=== PATIENT | female | born 2000 | race Caucasian/White ===

== ENCOUNTER 2023-08-30 01:00 | Emergency (ER) | payer OTHER ==
--- OUTSIDE RECORDS SUMMARY | 2023-08-30 01:04 | XMS REPORT | Continuity of Care Document ---
Author Name Unknown Address [address] [facility] [facility] Address [address] [facility] [place] [address] Care Team Providers Care Director Skills Name Role Phone Shawn Lizarraga M.D.mberly Primary Care Physician [phone] JEAN PIERRE WEISS Attending Clinician Unavailable ARLIN CORNELIUS Attending Clinician Unavailable Arlin Cornelius MD Attending Clinician [phone] Doctor Unassigned, [place] Attending Clinician U BASIA Bertrand Attending Clinician Unavailable Basia Moreno PA-C Attending Clinician [phone] JOSE JUAN TORRES Attending Clinician Unavail able Nurse, Adc Pob Immunization Attending Clinician Unavailable Jose Juan Torres DO Attending Clinician [phone] KAREN GARCÍA Attending Clinician Unavailable Payers Payer Name Policy Type Policy Number Effective Date Expirati on Date Source BC 2 [id number] 2022 00:00:00 [employer] [place] [id number] 2016 00:00:00 Problems Condition Name Condition Details Condition Category Status Onset Date Resolution Date Last Treatment Date Treating Clinician Comments Source Current mild episode of major depressive disorder without prior episode Current mild episode of major depressive disorder without prior episode Disease Active 2-08 00:00: 00 Trinidad carmichael Nexplanon in place Nexplanon in place Disease Active 11-02 00:00: 00 [facility] Depression Depression Disease Active 06-15 00:00: 00 [facility] Acne vulgaris Acne vulgaris Disease Active 06-15 00:00: 00 [facility] Allergies, Adverse Reactions, Alerts Allergy Name Allergy Type Status Severity Reaction(s) Onset Date Inactive Date Treating Clinician Comments Source NO KNOWN ALLERGIE S Drug Class Active [facility] Social History Social Habit Start Date Stop Date Quantity Comments Source History of tobacco use Trinidad Timbo - External History SDOH Alcohol Frequency Trinidad mcelroy - External History SDOH Alcohol Std Drinks Trinidad Salazarlefty - External History SDOH Alcohol Binge Trinidad Izquierdo - External Alcohol Comment 2022-04-14 00:00:00 2022-04-14 00:00:00 occasionally Trinidad Izquierdo - External Education 2022-04-14 00:00:00 2022-04-14 00:00:00 15 Trinidad Salazarlefty - External Tobacco use and exposure 2022-04-14 00:00:00 2022-04-14 00:00:00 Smokeless tobacco non-user Trinidad Salazarlefty - External Alcohol intake 2022-04-14 00:00:00 2022-04-14 00:00:00 Current drinker of alcohol (finding) Trinidad Izquierdo - External Exposure to SARS-CoV-2 (event) 2021-10-23 00:00:00 2021-11-02 15:21:00 Not sure [facility] Sex Assigned At 2000 00:00:00 2000 00:00:00 Trinidad edwardlefty - External Smoking Status Start Date Stop Date Source Smokes tobacco daily 2022-04-14 00:00:00 Trinidad Izquierdo - External Never smoked tobacco [facility] Medications Ordered Medication Name Filled Medication Name Start Date Stop Date Current Medication? Ordering Clinician Indication Dosage Frequency Signature (SIG) Comments Components Source escitalopra m 20 mg tablet 6-20 00:00: 00 Yes mg Armando Dane Remy escitalopra m 20 mg tablet 2-24 00:00: 00 Yes mg Armando Alberto TAKE 1 TABLET DAILY. 2-15 00:00: 00 Yes 20 Armando Alberto TAKE ONE (1) TABLET (20 MG TOTAL) BY MOUTH DAILY. 8-14 00:00: 00 05-16 00:00 :00 No Armando Alberto Escitalopra m Oxalate 20 MG oral Tablet 04-14 00:00: 00 Yes [id number] 20mg Take 1 tablet (20 mg total) by mouth daily Trinidad carmichael Amoxicillin -Pot Clavulanate 875-125 MG oral Tablet 04-14 00:00: 00 Yes [id number] 1{tbl} Take 1 tablet by mouth 2 times daily Trinidad carmichael Escitalopra m Oxalate 20 MG oral Tablet 2021-03 00:00: 00 04-14 00:00 :00 No 20mg Take 20 mg by mouth daily Trinidad carmichael etonogestre L (NEXPLANON) implant 68 mg 11-02 22:00: 00 11-02 22:22 :00 No [id number] 68mg [facility] escitalopra m oxalate 20 mg tablet 05 00:00: 00 Yes [id number] TAKE 1 TABLET BY MOUTH ONCE DAILY [facility] Vital Signs Vital Name Observation Time Observation Value Comments S ource Systolic blood pressure 2022-04-14 16:51:00 132 mm[Hg] Trinidad vail - External Diastolic blood pressure 2022-04-14 16:51:00 68 mm[Hg] Trinidad vail - External Heart rate 2022-04-14 16:51:00 105 /min Kari Izquierdo - External Body temperature 2022-04-14 16:51:00 36.44 Gayla Trinidad Izquierdo - External Respiratory rate 2022-04-14 16:51:00 22 /min Trinidad Izquierdo - External Body height 2022-04-14 16:51:00 167.6 cm Nancy Izquierdo - External Body weight 2022-04-14 16:51:00 108.5 kg Nancy Izquierdo - External BMI 2022-04-14 16:51:00 38.61 kg/m2 Nancy Izquierdo - External Oxygen saturation in Arterial blood by Pulse oximetry 2022-04-14 16:51:00 98 /min Trinidad vail - External Systolic blood pressure 2021-11-02 21:03:00 130 mm[Hg] [place] [facility] Diastolic blood pressure 2021-11-02 21:03:00 77 mm[Hg] [place] [facility] Heart rate 2021-11-02 20:47:00 88 /min [facility] Body temperature 2021-11-02 20:47:00 36.78 Gayla [facility] Respiratory rate 2021-11-02 20:47:00 18 /min [facility] Body height 2021-11-02 20:47:00 170.2 cm [facility] Body weight 2021-11-02 20:47:00 106.505 kg [facility] BMI 2021-11-02 20:47:00 36.77 kg/m2 [facility] Body Temperature 2023-08-25 08:51:00 98.30 degrees Armando F Remy Heart Rate 2023-08-25 08:51:00 96.00 /min Nae en F Remy Respiratory Rate 2023-08-25 08:51:00 Armando F Remy BP Systolic 2023-08-25 08:51:00 133 mm[Hg] Step hen F Remy BP Diastolic 2023-08-25 08:51:00 68 mm[Hg] Liam phen F Remy Weight Measured 2023-08-25 08:51:00 240.00 pounds Armando F Remy Height Measured 2023-08-25 08:51:00 68.00 inches Armando F Remy BP Systolic 2023-05-12 13:44:00 154 mm[Hg] Step hen F Remy BP Diastolic 2023-05-12 13:44:00 75 mm[Hg] Liam phen F Remy Weight Measured 2023-05-12 13:44:00 240.20 pounds Armando F Remy Height Measured 2023-05-12 13:44:00 68.00 inches Armando F Remy Body Temperature 2023-05-12 13:44:00 98.30 degrees Armando F Remy Heart Rate 2023-05-12 13:44:00 64.00 /min Nae en Dane Alberto Respiratory Rate 2023-05-12 13:44:00 Armando Alberto BP Systolic 2023-04-21 15:55:00 151 mm[Hg] Mata Alberto BP Diastolic 2023-04-21 15:55:00 72 mm[Hg] Liam Alberto Weight Measured 2023-04-21 15:55:00 242.60 pounds Armando Alberto Height Measured 2023-04-21 15:55:00 68.00 inches Armando Alberto Body Temperature 2023-04-21 15:55:00 98.30 degrees Armando Alberto Heart Rate 2023-04-21 15:55:00 89.00 /min Nae en Dane Alberto Respiratory Rate 2023-04-21 15:55:00 18.00 /min Armando Alberto Procedures Procedure Date / Time Performed Performing Clinician Source CONSENT FOR CONTRACEPTION 2021-11-02 05:01:00 Doctor Unassigned, [place] POCT TEST 2021-11-02 00:00:00 Arlin Cornelius [facility] Encounters Start Date/Time End Date/Time Encounter Type Admission Type Attending [facility] Care Department Encounter ID Source 2023-08-25 08:45:33 2023-08-25 08:45:33 Outpatient SFA SFA [id number] Armando Alberto 2023-08-25 00:00:00 2023-08-25 00:00:00 Outpatient Visit SFA [id number] Armando Alberto 2023-05-12 13:39:10 2023-05-12 13:39:10 Outpatient SFA SFA [id number] Armando Alberto 2023-04-21 15:47:59 2023-04-21 15:47:59 Outpatient SFA SFA [id number] Armando Alberto 2023-04-10 00:00:00 2023-04-10 00:00:00 Outpatient JEAN PIERRE WEISS [id number] Trin[facility] Izquierdo 2022-10-18 00:00:00 2022-10-18 00:00:00 Outpatient JEAN PIERRE WEISS [id number] Trinidad Izquierdo 2022-10-12 08:30:00 2022-10-12 08:30:00 Outpatient JEAN PIERRE WEISS [id number] Trin[facility] Izquierdo 2022-05-21 00:00:00 2022-05-21 00:00:00 Outpatient JEAN PIERRE WEISS [place] [id number] [facility] 2022-04-21 00:00:00 2022-04-21 00:00:00 Outpatient JEAN PIERRE WEISS [id number] [facility] 2022-04-14 10:45:00 2022-04-14 10:45:00 Outpatient JEAN PIERRE WEISS [place] [id number] [facility] 2021-11-02 15:30:00 2021-11-02 16:06:17 Outpatient R ARLIN CORNELIUS [facility] [id number] [facility] 2021-11-02 15:30:00 2021-11-02 16:06:17 Office Visit Arlin Cornelius [facility] 1..840.114 [id number] [facility] 2021-11-02 00:00:00 2021-11-02 00:00:00 Orders Only Doctor Unassigned, [place] [facility] 1..840.114 [id number] [facility] 2021-10-14 14:30:00 2021-10-14 15:29:15 Outpatient BASIA MARSHALL [facility] [id number] [facility] 2021-10-14 14:30:00 2021-10-14 15:29:15 Outpatient BASIA MARSHALL [facility] [id number] [facility] 2021-10-14 14:30:00 2021-10-14 15:29:15 Outpatient R BASIA MORENO [facility] [id number] [facility] 2021-10-14 14:30:00 2021-10-14 15:29:15 Office Visit Basia Moreno [facility] 1..840.114 [id number] [facility] 2021-10-14 14:30:00 2021-10-14 14:30:00 Outpatient R [facility]FFANIE [facility] [id number] [facility] 2021-10-14 00:00:00 2021-10-14 00:00:00 Orders Only Doctor Unassigned, [place] [facility] 1..840.114 [id number] [facility] 2021-09-21 14:30:00 2021-09-21 14:30:00 [id number] 2020-11-19 15:40:00 2020-11-19 15:40:00 Outpatient JOSE JUAN MTZ [facility] [id number] [facility] 2020-11-19 13:38:47 2020-11-19 13:39:00 Imm/Inj Visit NurseMorena ImmunizatiJose Juan Vang [facility] ..840.114 350.1.13.10 [id number] [id number] [facility] 2020-11-18 15:30:00 2020-11-18 15:30:00 [facility] [id number] 2020-10-28 16:16:15 2020-10-28 16:26:15 Imm/Inj Visit NurseMorena ImmunizJose Juan Hobbs [facility] [id number] [facility] 2020-10-28 16:20:00 2020-10-28 16:20:00 Outpatient R BRIANJOSE JUAN [facility] [id number] [facility] 2020-10-20 11:10:00 2020-10-20 11:10:00 Outpatient R [facility] [id number] [facility] 2020-04-08 10:40:00 2020-04-08 10:40:00 Outpatient R KAREN GARCÍA [facility] [id number] [facility] Results Test Description Test Time Test Comments Results Result Co mments Source Armando Dane AlbertoHEMOGLOBIN [id number] 00:00:00* Test Item Value Reference Range Interpretation Comme nts HEMOGLOBIN A1c (test code = 93778) <4.2 % Armando AlbertoCOMPREHENSIVE METABOLIC [id number] 00:00:00* Test Item Value Reference Range Interpretation Comme nts GLUCOSE (test code = 2217) 98 MG/DL BUN (test code = 2208) 15 MG/DL CREATININE (test code = 2214) 0.66 MG/DL eGFR (2020 CKD-EPI) (test code = 64704) 126 ML/MIN/1.73 CALC BUN/CREAT (test code = 2235) 23 RATIO SODIUM (test code = 2231) 142 MEQ/L POTASSIUM (test code = 2228) 4.1 MEQ/L CHLORIDE (test code = 2215) 105 MEQ/L CARBON DIOXIDE (test code = 2206) 24 MEQ/L CALCIUM (test code = 2209) 9.2 MG/DL PROTEIN, TOTAL (test code = 2229) 7.1 G/DL ALBUMIN (test code = 2201) 5.0 G/DL CALC GLOBULIN (test code = 2240) 2.1 G/DL CALC A/G RATIO (test code = 2234) 2.4 RATIO BILIRUBIN, TOTAL (test code = 2207) 4.2 MG/DL ALKALINE PHOSPHATASE (test code = 2204) 72 U/L AST (test code = 2218) 50 U/L ALT (test code = 2219) 106 U/L Armando Palmer, THIRD [id number] 00:00:00* Test Item Value Reference Range Interpretation Comme nts TSH, THIRD GENERATION (test code = 2821) 1.850 UIU/ML Armando AlbertoPOCT [id number] 20:44:00* Test Item Value Reference Range Interpretation Comme nts POCT PREG (test code = 1605) Negative On board controls acceptable with C Line (test code = 3574) Yes POCT PREG LOT # (test code = 3575) POCT PREG TEST DATE ( test code = 3576) [facility] [id number] 20:44:00* Test Item Value Reference Range Interpretation Comme nts POCT PREG (test code = 1605) Negative On board controls acceptable with C Line (test code = 3574) Yes POCT PREG LOT # (test code = 3575) POCT PREG TEST DATE ( test code = 3576) [facility] Notes Date/Time Note Provider Source 2023-08-25 00:00:00 [id number] 20T00:00:00+ + + | Plan Activity | Plan Date |+ + +| Advised pt to quit smoking. | 2023-04-21 || Discussed resources available when pt is ready to quit smoking. | || Recommend setting quit date. | |+ + +| discussed tobacco cessation | 2023-04-21 || consider setting a quit date | || consider medications to help with cravings if needed | || continue to monitor | |+ + +| Recommend weight loss, increase exercise, increase vegetables, lean meats, low | 2023-04-21 || sugar fruits. | |+ + +| Discussed daily exercise/play/activity as part of a healthy lifestyle. | 2023-04-21 || Encourage 60 mins or more of moderate to vigorous intensity physical activity | || daily including | || aerobic, muscle strengthening, and bone strengthening. | |+ + +| Discussed need to monitor diet. Recommend ADA diet | 2023-04-21 || Decrease high carb foods, sugary drinks, fatty foods, caffeine. | || Increase low sugar fruits, vegetables, lean meats, water intake | |+ + +| I encourage you to take charge of your health by staying current on well-care | 2023-05-12 || visits, screenings, and immunizations. | || Our goal is to help you live a healthier and happier life through preventive | || care. | || Take a daily multivitamin, eat and low fat, lean meat, and fresh vegetable diet | || with low sugar fruits | || Exercise and ensure healthy life style modifications. | || Increase calcium and Vitamin D in your daily diet | || If you are on daily medications, please adhere. | || Take time to learn or update your knowledge of family medical history. | || Check CMP LIPIDs, hgA1C | |+ + +| Rx Lexapro. 20mg 1 tab po QD #90 Rf 1 | 2023-08-25 || Patient clinically well without any problems | || Patient aware of the risk and benefits of the medications | || Patient declines BH and Pysch at this time. | |+ + +| Patient with hx of elevated LFTs | 2023-08-25 || 2023-05-12 COMPREHENSIVE METABOLIC PANEL ALT 106 U/L 5-40 | || 2023-05-12 COMPREHENSIVE METABOLIC PANEL AST 50 U/L | || No hx of Hep, ETOH or herbals | || check CMP | |+ + +| Check Lipid, HgA1c, CMP | 2023-08-25 || Discussed need for weight loss, increase exercise and healthier diet. to | || decrease risk of correction and acute complications of chronic disease | || including heart disease, HTN, DM, Hyperlipidemia and OA. | || Discussed SGLT2 LGP1, and Contrave ect. She is aware that insurance doesn't | || cover the SGLT2 and LGP1 without documented trial of lifestyle modifications or | || other chronic disease such as DM. | || I discussed with the patient to follow up with her insurance and see what | || medications they cover for weight loss. | || | || Wegovy and patient aware of titration. of medications. She is aware of the risk | || and benefits of the medications. | |+ + +[id number] n of TreatmentLNCARE PLANTXTSFA|[id number] for patient [id number] Section NarrativeNARRATIVEFormatted C-CDA narrative textSFAStdoron Farzana [facility]2024-06-20T00:00:00 [facility]"
[2023-08-30] MEDS ORDERED: METOCLOPRAMIDE 10 MG/2mL INJ ONE (01:41)
[2023-08-30] MEDS ORDERED: NA CHLORIDE 0.9% 1,000 ML ONE (01:42)
[2023-08-30 02:30] LABS: Absolute Eosinophils 0.1 K/uL (0-0.5); Absolute Monocytes 0.2 K/uL (0.1-1.3); Absolute Neutrophil 2.2 K/uL (1.8-8.0); Basophils % 1.3 % (0-1.3); Eosinophils % 1.7 % (0-4.4); Hematocrit 18.6 % (36.0-45.0); Hemoglobin 6.5 g/dL (12.0-15.0); Lymphocytes % 28.9 % (15.3-44.8); MCH 31.8 pg (27.0-35.0); MCHC 34.9 g/dL (32.0-36.0); MCV 91.2 fL (80-100); MPV 8.1 fL (7.6-11.3); Monocytes % 6.9 % (3.3-12.3); Neutrophils % 61.2 % (41.7-73.7); Nucleated RBC Absolute Count 0.1 (0-0); Nucleated Red Blood Cells % 2.9 % (0-0); Platelets 191 thou/uL (152-406); RBC Red Blood Cell Count 2.03 M/uL (3.86-4.86); Red Cell Distribution Width 19.1 % (12.1-15.2)
[2023-08-30 02:36] LABS: Specific Gravity 1.009 (1.005-1.030); Sqamous Epithelial <5 /HPF (None Seen); Urine Bacteria <20 /HPF (<20); Urine Bilirubin NEGATIVE (Negative); Urine Blood 2+ (Negative); Urine Clarity Turbid (Clear); Urine Color Yellow (Yellow); Urine Culture Reflex Order NOT NEEDED; Urine Glucose NEGATIVE (Negative); Urine Ketones NEGATIVE (Negative); Urine Microscopic Reflex YN ORDER UMIC; Urine Mucus Slight /HPF (None Seen); Urine Nitrite NEGATIVE (Negative); Urine Protein 3+ (Negative); Urine RBC <5 /HPF (None Seen); Urine Urobilinogen 1+ (Normal); Urine WBC <5 /HPF (<5)
[2023-08-30 02:38] LABS: Albumin 3.8 g/dL (3.4-5.0); Albumin/Globulin Ratio 1.2 (1.1-1.8); Anion Gap 7.3 mEq/L (5.0-15.0); Bilirubin Total 4.4 mg/dL (0.2-1.0); Globulin 3.3 g/dL (2.3-3.5); Potassium 3.3 mEq/L (3.5-5.1); Protein, Total 7.1 g/dL (6.4-8.2)
[2023-08-30 03:09] LABS: Percent Reticulocyte Count 6.09 % (0.4-2.05); RBC Red Blood Cell Count 2.05 M/uL (3.86-4.86)
[2023-08-30 03:16] LABS: Bilirubin Direct 0.7 mg/dL (0-0.2)
[2023-08-30 03:42] LABS: Band Neutrophils 21 % (0-1); Differential Total Cells Count 100; Lymphocytes 23 % (15-42); Monocytes 4 % (0-10); Nucleated Red Blood Cells 2 /100WBC; Reactive Lymphocytes 12 %; Segmented Neutrophils 39 % (40-80)
[2023-08-30 03:43] LABS: Anisocytosis 1+; Blood Morphology Comment NOTED (NOT SEEN); Microcytosis 1+; Platelet Estimate ADEQ; Polychromasia 2+
[2023-08-30] MEDS ORDERED: NA CHLORIDE 0.9% 250 ML ONE (03:45)
--- NOTE | 2023-08-30 05:06 | ER ---
Nurse's Notes [facility] Name: Miles Daniels Age: 23 yrs Sex: Female : 2000 Arrival Date: 08/30/2023 Time: 01:00 Bed 5 Private MD: Diagnosis: Splenomegaly, not elsewhere classified;Splenic Infarct;Anemia, unspecified;Upper abdominal pain, unspecified Presentation: 08/29 01:45 Chief complaint: Patient states: LUQ pain starting Tuesday evening, feels tight, 8/10 tm6 pain. Pain is worse with movement, deep breathes, and coughs. Fever and headaches beginning on Tuesday. Coronavirus screen: Vaccine status: Patient reports receiving the 2nd dose of the covid vaccine. Ebola Screen: Patient negative for fever greater than or equal to 101.5 degrees Fahrenheit, and additional compatible Ebola Virus Disease symptoms Patient denies exposure to infectious person. Patient denies travel to an Ebola-affected area in the 21 days before illness onset. No symptoms or risks identified at this time. Initial Sepsis Screen: Does the patient meet any 2 criteria? HR > 90 bpm. Does the patient have a suspected source of infection? No. Patient's initial sepsis screen is negative. Risk Assessment: Do you want to hurt yourself or someone else? Patient reports no desire to harm self or others. Onset of symptoms was August 26, 2023. 01:45 Method Of Arrival: Ambulatory tm6 01:45 Acuity: CINDY 3 tm6 Triage Assessment: 01:48 General: Appears in no apparent distress. Behavior is calm, cooperative. Pain: tm6 Complains of pain in left upper quadrant Pain does not radiate. Pain currently is 8 out of 10 on a pain scale. Quality of pain is described as tight Pain began 1 day ago. Aggravated by increased activity. EENT: No signs and/or symptoms were reported regarding the EENT system. Neuro: Level of Consciousness is awake, alert, obeys commands, Oriented to person, place, time, situation. Cardiovascular: No deficits noted. Patient's skin is warm and dry. Respiratory: No deficits noted. Airway is patent Respiratory effort is even, unlabored, Respiratory pattern is regular, symmetrical. GI: Abdomen is round non-distended, Abd is soft and non tender X 4 quads. Reports upper abdominal pain. : No signs and/or symptoms were reported regarding the genitourinary system. Derm: No signs and/or symptoms reported regarding the dermatologic system. Musculoskeletal: No signs and/or symptoms reported regarding the musculoskeletal system. DEBIT AGENT: 01:48 LMP 08/15/2023, unknown tm6 Historical: - Allergies: 01:48 No Known Allergies; tm6 - PMHx: 01:48 None; tm6 - PSHx: 01:48 Tonsillectomy; tm6 - Immunization history:: Client reports receiving the 2nd dose of the Covid vaccine. - Infectious Disease History:: Denies. - Social history:: Smoking status: Patient denies any tobacco usage or history of. Patient uses alcohol, but reports only rare drinking. Screenin:50 [facility] ED Fall Risk Assessment (Adult) History of falling in the last 3 months, tm6 including since admission No falls in past 3 months (0 pts) Confusion or Disorientation No (0 pts) Intoxicated or Sedated No (0 pts) Impaired Gait No (0 pts) Mobility Assist Device Used No (0 pt) Altered Elimination No (0 pt) Score/Fall Risk Level 0 - 2 = Low Risk Oriented to surroundings, Maintained a safe environment, Educated pt \T\ family on fall prevention, incl call for assistance when getting out of bed. Abuse screen: Denies threats or abuse. Denies injuries from another. Nutritional screening: No deficits noted. Tuberculosis screening: No symptoms or risk factors identified. Assessment: 01:50 Reassessment: see triage assessment. GI: Bowel sounds present X 4 quads. tm6 02:33 Reassessment: No changes from previously documented assessment. tm6 03:36 Reassessment: Patient and/or family updated on plan of care and expected duration. Pain tm6 level reassessed. Patient is alert, oriented x 3, equal unlabored respirations, skin warm/dry/pink. 04:40 Reassessment: Patient appears in no apparent distress at this time. No changes from tm6 previously documented assessment. 05:30 Reassessment: Patient and/or family updated on plan of care and expected duration. Pain ha1 level reassessed. Patient is alert, oriented x 3, equal unlabored respirations, skin warm/dry/pink. 05:42 Reassessment: nurse to nurse report given to CARRILLO Jacobs. ha1 06:00 Reassessment: Patient and/or family updated on plan of care and expected duration. Pain ha1 level reassessed. Patient is alert, oriented x 3, equal unlabored respirations, skin warm/dry/pink. 06:30 Reassessment: blood transfusion continue by EMS. No adverse reaction. ha1 Vital Signs: 01:45 BP 154 / 68; Pulse 113; Resp 17; Temp 98.5(O); Pulse Ox 100% on R/A; Weight 108.86 kg; tm6 Height 5 ft. 6 in. ; Pain 8/10; 02:21 Pulse 103; Pulse Ox 100% ; tm6 02:33 BP 134 / 72; Pulse 106; Pulse Ox 100% on R/A; tm6 03:36 BP 138 / 61; Pulse 105; Pulse Ox 100% on R/A; tm6 04:40 BP 134 / 56; Pulse 118; Pulse Ox 99% on R/A; tm6 05:30 BP 136 / 82; Pulse 108; Resp 19 S; Temp 98.8(T); Pulse Ox 100% on R/A; ha1 06:00 BP 142 / 82; Pulse 107; Resp 17 S; Temp 98.7(T); Pulse Ox 100% on R/A; ha1 01:45 Body Mass Index 38.74 (108.86 kg, 167.64 cm) tm6 01:45 Pain Scale: Adult tm6 ED Course: 01:01 Patient arrived in ED. jj6 01:04 Efrain Blum MD is Attending Physician. ec2 01:28 Chloé Oneal RN is Primary Nurse. tm6 01:48 Triage completed. tm6 01:48 Arm band placed on right wrist. tm6 01:50 Patient has correct armband on for positive identification. Bed in low position. Call tm6 light in reach. Side rails up X 1. Provided Education on: use of call palacios. Client placed on continuous cardiac and pulse oximetry monitoring. NIBP monitoring applied. Pulse ox on. NIBP on. Door closed. Noise minimized. Pillow given. 01:50 Inserted saline lock: 20 gauge in right antecubital area, using aseptic technique. tm6 01:52 CBC with Diff Sent. 6 01:52 CMP Sent. 6 01:52 Lipase Sent. tm6 01:52 Test, Urine Sent. tm6 01:52 Urinalysis w/ reflexes Sent. tm6 03:14 US Abdomen Limited In Process Unspecified. EDMS 03:25 CT Abd/Pelvis - IV Contrast Only In Process Unspecified. EDMS 03:57 Inserted saline lock: 20 gauge in left antecubital area, using aseptic technique. ha1 04:04 CXR XRAY In Process Unspecified. EDMS 05:04 Initiated transfer with Charisse at [facility]. rv1 06:30 No provider procedures requiring assistance completed. Patient transferred, IV remains ha1 in place. Administered Medications: 01:52 Drug: NS 0.9% IV 1000 ml IV at 1 bolus Per protocol; 1000 mL bolus Route: IV; Rate: 1 tm6 bolus; Site: right antecubital; 06:30 Follow up: Response: No adverse reaction; IV Status: Completed infusion; IV Intake: ha1 1000ml 01:52 Drug: metoCLOPramide IVP 10 mg IVP once; over 1 to 2 minutes Route: IVP; Site: right tm6 antecubital; 02:20 Follow up: Response: No adverse reaction; Marked relief of symptoms ha1 Medication: 01:50 VIS not applicable for this client. tm6 Intake: 06:30 IV: 1000ml; Total: 1000ml. ha1 Outcome: 05:06 ER care complete, transfer ordered by . ec2 06:30 Transferred by ground EMS to [facility] completed. ha1 X-rays sent w/ patient. 06:30 Condition: stable 06:30 Instructed on the need for transfer, Demonstrated understanding of instructions, 06:30 Patient left the ED. ha1 Signatures: Dispatcher [employer] Nata Dominique jj6 Katey Valera, RN RN ha1 Mey Stubbs rv1 Efrain Blum MD MD ec2 Chloé Oneal RN RN 6
--- NOTE | 2023-08-30 05:07 | EDPHYS ---
Physician Documentation [facility] Name: Miles Daniels Age: 23 yrs Sex: Female : 2000 Arrival Date: 08/30/2023 Time: 01:00 Bed 5 Private MD: ED Physician Efrain Blum HPI: 08/29 01:30 This 23 yrs old Female presents to ER via Unassigned with complaints of ec2 Abdominal Pain. 01:30 Patient arrives today for evaluation of left flank pain. Patient reports that she been ec2 having worsening flank pain. Patient reports associated nausea, no vomiting, also reports occasional cough. Patient reports no urinary complaints, no bowel issues, LMP was 3 to 4 weeks ago.. [facility]: 01:48 LMP 08/15/2023, unknown tm6 Historical: - Allergies: 01:48 No Known Allergies; tm6 - PMHx: 01:48 None; tm6 - PSHx: 01:48 Tonsillectomy; tm6 - Immunization history:: Client reports receiving the 2nd dose of the Covid vaccine. - Infectious Disease History:: Denies. - Social history:: Smoking status: Patient denies any tobacco usage or history of. Patient uses alcohol, but reports only rare drinking. ROS: 01:30 Constitutional: as per hpi ec2 Exam: 01:30 Constitutional: GEN: NAD Head: atraumatic Eyes: EOMI Ears: External ears are ec2 normal. CV: tachy LUNGS: no respiratory distress ABD: non-distended, soft, minimally tender left upper quadrant, not guarding, not rigid. SKIN: Slight amount of jaundice noted, slight amount of scleral icterus noted as well MSK: no evidence of trauma NEURO: moves all extremities equally Vital Signs: 01:45 BP 154 / 68; Pulse 113; Resp 17; Temp 98.5(O); Pulse Ox 100% on R/A; Weight 108.86 kg; tm6 Height 5 ft. 6 in. ; Pain 8/10; 02:21 Pulse 103; Pulse Ox 100% ; tm6 02:33 BP 134 / 72; Pulse 106; Pulse Ox 100% on R/A; tm6 03:36 BP 138 / 61; Pulse 105; Pulse Ox 100% on R/A; tm6 04:40 BP 134 / 56; Pulse 118; Pulse Ox 99% on R/A; tm6 05:30 BP 136 / 82; Pulse 108; Resp 19 S; Temp 98.8(T); Pulse Ox 100% on R/A; ha1 06:00 BP 142 / 82; Pulse 107; Resp 17 S; Temp 98.7(T); Pulse Ox 100% on R/A; ha1 01:45 Body Mass Index 38.74 (108.86 kg, 167.64 cm) tm6 01:45 Pain Scale: Adult tm6 MDM: 01:18 Patient medically screened. ec2 01:31 Data reviewed: vital signs. ED course: Patient arrives today for evaluation of left ec2 upper quadrant abdominal pain. Examination remarkable for well-appearing nontoxic patient with slight left upper quadrant TTP without guarding or rigidity. Will obtain lab work, urine studies, CT imaging. Differential diagnoses include ovarian cyst, ureteral stone, pyelonephritis. 02:14 ED course: Chest x-ray independently reviewed and interpreted by me, shows no acute ec2 intrathoracic process.. 02:51 ED course: CBC shows anemia with hemoglobin 6.5, leukopenia with a WBC of 3.6. ec2 Metabolic profile shows total bili elevation at 4.4. Hypokalemia with potassium of 3.3. Urine is noninfectious appearing. testing negative. Pending CT of the abdomen pelvis. Will also obtain dedicated ultrasound of the right upper quadrant to evaluate for patient's total bili elevation. . 03:06 ED course: I will give the patient a unit of blood for transfusion. I discussed the ec2 significant anemia as well as the jaundice and the elevated total bili elevation, mother now present in the room, provides history that father has a history of hereditary spherocytosis.. 03:22 ED course: Reticulocyte count elevated at 6.09. Direct bilirubin mildly elevated at ec2 0.7. . 05:03 ED course: I discussed the case with radiology, concern for massive splenomegaly along ec2 with an anterior infarct. LDH is elevated at 551. Will proceed with blood transfusion. I discussed the case with our general surgeon, Dr. Ken who recommended transfer for further evaluation with interventional radiology. I will proceed with transfer. I updated the family regarding the plan of care and they are agreeable. . 05:31 ED course: I discussed the case with interventional radiology at [facility] who ec2 agrees to consult on the patient, general surgery also agreed to consult on the patient, patient will be an ER to ER transfer. . 05:41 ED course: MDM: Differential diagnosis as documented above in ED course; All lab tests ec2 ordered and reviewed as documented above; Independent interpretation of tests: CT imaging shows marked splenomegaly along with splenic infarct; History gathered from independent historian: Yes, family; Discuss inpatient hospitalization: Yes; I discussed the case with: surgery, IR . 08/29 01:24 Order name: CBC with Diff; Complete Time: 04:14 ec2 08/29 01:24 Order name: CMP; Complete Time: 05:03 ec2 08/29 01:24 Order name: Lipase; Complete Time: 05:03 ec2 08/29 01:24 Order name: Test, Urine; Complete Time: 02:51 ec2 08/29 01:24 Order name: Urinalysis w/ reflexes; Complete Time: 02:51 ec2 08/29 02:41 Order name: Manual Differential; Complete Time: 04:14 [facility] 08/29 03:03 Order name: Retic Count; Complete Time: 03:19 ec2 08/29 03:04 Order name: Bilirubin, Direct 2 08/29 03:08 Order name: Bilirubin Direct; Complete Time: 05:03 EDDE 08/29 03:08 Order name: Packed Rbc Leukored 2 08/29 03:10 Order name: ABO/RH typing [facility] 08/29 03:10 Order name: Antibody Screen [facility] 08/29 03:51 Order name: ABO/RH no charge; Complete Time: 04:14 EDDE 08/29 04:25 Order name: Lactic Dehydrogenase; Complete Time: 05:03 [facility] 08/29 01:30 Order name: CXR XRAY 2 08/29 02:53 Order name: US Abdomen Limited ec2 08/29 03:03 Order name: CT Abd/Pelvis - IV Contrast Only ec2 08/29 01:24 Order name: IV Saline Lock; Complete Time: 01:52 ec2 08/29 01:24 Order name: Labs collected and sent; Complete Time: 01:52 ec2 08/29 03:08 Order name: Consent for Blood Transfusion; Complete Time: 03:27 ec2 08/29 03:08 Order name: IV Saline Lock; Complete Time: 03:27 ec2 Administered Medications: 01:52 Drug: NS 0.9% IV 1000 ml IV at 1 bolus Per protocol; 1000 mL bolus Route: IV; Rate: 1 tm6 bolus; Site: right antecubital; 06:30 Follow up: Response: No adverse reaction; IV Status: Completed infusion; IV Intake: ha1 1000ml 01:52 Drug: metoCLOPramide IVP 10 mg IVP once; over 1 to 2 minutes Route: IVP; Site: right tm6 antecubital; 02:20 Follow up: Response: No adverse reaction; Marked relief of symptoms ha1 Disposition Summary: 08/30/23 05:06 Transfer Ordered Notes: Transfer Location: Other Acute Care Facility ec2 Reason: Higher level of care ec2 Condition: Stable ec2 Problem: new ec2 Symptoms: have improved ec2 Accepting Physician: transferring carl(08/30/23 06:30) ha1 Diagnosis - Splenomegaly, not elsewhere classified ec2 - Splenic Infarct ec2 - Anemia, unspecified ec2 - Upper abdominal pain, unspecified ec2 Forms: - Medication Reconciliation Form ec2 - SBAR form ec2 Critical care time excluding procedures: 03:11 Critical care time: Bedside Care: 30 minutes, Family Intervention: 5 minutes. Total ec2 time: 35 minutes Signatures: Dispatcher [employer] EDKatey Cruz RN RN ha1 Efrain Blum MD MD ec2 Chloé Oneal RN RN tm6 Corrections: (The following items were deleted from the chart) 01:24 01:24 CBC+H.LAB.BRZ ordered. EDDE EDMS 01:24 01:24 COMPREHENSIVE METABOLIC PANEL+C.LAB.BRZ ordered. EDDE EDMS 01:24 01:24 LIPASE+C.LAB.BRZ ordered. EDDE EDMS 01:24 01:24 Test, Urine+UC.LAB.BRZ ordered. EDDE EDMS 01:24 01:24 Urinalysis+U.LAB.BRZ ordered. EDDE EDMS 01:30 01:30 Chest Single View+RAD.RAD.BRZ ordered. EDDE EDMS 02:14 01:30 Constitutional: GEN: NAD Head: atraumatic Eyes: EOMI Ears: External ears are ec2 normal. CV: regular rate LUNGS: no respiratory distress ABD: non-distended, soft, minimally tender left upper quadrant, not guarding, not rigid. SKIN: no evidence of rashes MSK: no evidence of trauma NEURO: moves all extremities equally ec2 02:54 02:54 Abdomen Limited+US.RAD.BRZ ordered. EDMS EDMS 03:05 01:30 Constitutional: GEN: NAD Head: atraumatic Eyes: EOMI Ears: External ears are ec2 normal. CV: tachy LUNGS: no respiratory distress ABD: non-distended, soft, minimally tender left upper quadrant, not guarding, not rigid. SKIN: no evidence of rashes MSK: no evidence of trauma NEURO: moves all extremities equally ec2 03:07 01:32 Abdomen Pelvis Wo Con+CT.RAD.BRZ ordered. EDMS EDMS 03:11 03:10 Critical care time: Bedside Care: 30 minutes, Consultation: 5 minutes. Total ec2 time: 35 minutes ec2 03:30 02:52 TYPE AND SCREEN+BB.LAB.BRZ ordered. EDMS EDMS 04:23 04:22 LACTIC DEHYDROGENASE+C.LAB.BRZ ordered. EDMS EDMS 06:30 05:06 transferring doc ec2 ha1
[2023-08-30 10:45] VITALS: O2SAT 100
[2023-08-30 11:05] VITALS: BP 136/82; TEMP 98.8
--- NOTE | 2023-08-30 14:29 | RAD REPORT ---
EXAM DESCRIPTION: US - Abdomen Exam Limited - 08/30/2023 3:13 am CLINICAL HISTORY: Eval for biliary tree abnl, t bili elevation COMPARISON: None. TECHNIQUE: US ABDOMEN LIMITED 08/30/2023 2:53 AM CDT FINDINGS: Liver is normal in echotexture. Portal vein is patent. Gallbladder is contracted. Common b ile duct measures 3 mm. IMPRESSION: Contracted gallbladder. Electronically signed by: Max Rodarte MD 08/30/2023 04:51 AM CDT RP Due to temporary technical issues with the PACS/Fluency reporting system, reports are being signed by the in house radiologists without review as a courtesy to insure prompt reporting. The interpreting radiologist is fully responsible for the content of the report.
--- NOTE | 2023-08-30 14:30 | RAD REPORT ---
EXAM DESCRIPTION: RAD - Chest Single View - 08/30/2023 4:02 am CLINICAL HISTORY: COUGH COMPARISON: None. TECHNIQUE: XR CHEST 1 VIEW 08/30/2023 1:30 AM CDT FINDINGS: Cardiac silhouette is normal in size. Lungs are clear without consolidation, atelectasis, mass or edema. There is no pleural effusion. There is no pneumothorax. There are no acute osseous fin dings. IMPRESSION: Clear lungs. Electronically signed by: Max Rodarte MD 08/30/2023 04:51 AM CDT RP Due to temporary technical issues with the PACS/Fluency reporting system, reports are being signed by the in house radiologists without review as a courtesy to insure prompt reporting. The interpreting radiologist is fully responsible for the content of the report.
--- NOTE | 2023-08-30 14:41 | RAD REPORT ---
EXAM DESCRIPTION: CT - Abdomen Pelvis W Contrast - 08/30/2023 6:42 am ADDENDUM #1 Critical findings were discussed with and acknowledged by Dr. Efrain Blum on 08/30/2023 5:00 AM CDT. Electronically signed by: Max Rodarte MD 08/30/2023 05:12 AM CDT RP End of Addendum CLINICAL HISTORY: Luq abd pain COMPARISON: None. TECHNIQUE: CT ABDOMEN PELVIS WITH IV CONTRAST on 08/30/2023 3:03 AM CDT This exam was performed according to our departmental dose-optimization program, which includes autom ated exposure control, adjustment of the mA and/or kV according to patient size and/or use of iterati ve reconstruction technique. FINDINGS: Lower lungs are clear. Abdomen: The liver is normal in appearance. There is no biliary dilatation. Gallbladder is normal in appearance. Spleen is massively enlarged measuring 19.8 cm. There is a small infarct involving the an terior aspect of the spleen measuring 5.0 x 6.2 cm. The adrenal glands and kidneys are unremarkable. Abdominal aorta is normal in course and caliber without aneurysm. There is no free air. There is no r etroperitoneal adenopathy. Pelvis: There is no bowel obstruction. Urinary bladder is unremarkable. There is no free fluid. Uteru s is normal in size. Appendix is normal. Skeleton: There are no acute osseous findings. No suspicious bony lesions. IMPRESSION: Massive splenomegaly with an anterior infarct. Electronically signed by: Max Rodarte MD 08/30/2023 04:55 AM CDT RP Due to temporary technical issues with the PACS/Fluency reporting system, reports are being signed by the in house radiologists without review as a courtesy to insure prompt reporting. The interpreting radiologist is fully responsible for the content of the report.
== END 2023-08-30 06:30 ==
LOC: ER 01:00
PROC: 30233N1 Transfusion of Nonautologous Red Blood Cells into Peripheral Vein, Percutaneous Approach (ICD-10-PCS; principal; 2023-08-30)
DX: D73.5 Infarction of spleen (principal); R16.1 Splenomegaly, not elsewhere classified; D64.9 Anemia, unspecified
CPT/HCPCS: 85025; 81001; 36415; 86900; 86850; 83615; 81025; 85044; 86901; 86920; 82248; 83690; 80053; 74177; 71045; 76705; 36430; Q9967; J2765; P9016; J7050; J7030